=== PATIENT | female | born 1990 | race Caucasian/White ===

== ENCOUNTER 2024-06-13 00:10 | Emergency (ER) | payer OTHER ==
[~2024-06-13] VITALS: Ht 154.9 cm; Wt 54.4 kg
[2024-06-13 00:19] VITALS: BP 143/92; PULSE 68; RESP 14; TEMP 97.8; O2SAT 99
[2024-06-13 01:20] VITALS: BP 117/73; PULSE 63; RESP 20; O2SAT 97
[2024-06-13 02:23] LABS: BASOPHILS # (AUTO) 0.1 K/uL (0.00-0.22); BASOPHILS % (AUTO) 1.9 % (0.0-2.0); EOSINOPHILS # (AUTO) 0.5 K/uL (0-0.4); EOSINOPHILS % (AUTO) 8.1 % (0.0-4.0); HEMATOCRIT 42.6 % (36-48); HEMOGLOBIN 14.3 g/dL (12.0-16.0); LYMPHOCYTES # (AUTO) 2.2 K/uL (2.5-16.5); LYMPHOCYTES % (AUTO) 38.6 % (20.5-51.1); MEAN CORPUSCULAR HEMOGLOBIN 30 pg (27-31); MEAN CORPUSCULAR HGB CONC 34 g/dL (33-37); MEAN CORPUSCULAR VOLUME 90.1 fL (80-94); MONOCYTES # (AUTO) 0.6 K/uL (0.8-1.0); MONOCYTES % (AUTO) 11.5 % (1.7-9.3); NEUTROPHILS # (AUTO) 2.2 K/uL (1.8-7.7); NEUTROPHILS % (AUTO) 39.9 % (42.2-75.2); PLATELET COUNT (AUTO) 304 K/uL (140-450); RED BLOOD CELL COUNT(AUTO) 4.72 MIL/uL (4.20-5.40); RED CELL DISTRIBUTION WIDTH 12.8 % (11.6-13.7); WHITE BLOOD COUNT (AUTO) 5.6 K/uL (4.8-10.8)
[2024-06-13 02:37] LABS: ANION GAP 13.1 (8-16); CALCIUM 9.5 mg/dL (8.5-10.1); CARBON DIOXIDE 26.5 mmol/L (21-32); CREATININE 0.8 mg/dL (0.6-1.3); POTASSIUM 3.6 mmol/L (3.5-5.1)
[2024-06-13 02:49] LABS: INR 0.88 (0.8-1.2); PROTHROMBIN TIME 9.3 secs (10.8-13.4)
[2024-06-13 02:52] LABS: THYROID STIMULATING HORMONE 2.38 uIU/mL (0.34-3.74)
== END 2024-06-13 03:24 | disposition home or self-care (01) ==
LOC: MED 00:10
DX: R00.2 Palpitations (principal)
CPT/HCPCS: 36415; 71045; 80048; 81025; 84443; 84484; 85025; 85610; 85730; 93005; 99285; Q0092